=== PATIENT | female | born 1940 | race Caucasian/White ===

== ENCOUNTER 2021-05-21 07:31 | Emergency (ER) | payer MEDICARE, SELFPAY ==
--- NOTE | ~2021-05-21 | XR_ITS ---
EXAMINATION: XR CHEST CLINICAL INFORMATION: Shortness of breath COMPARISON: None TECHNIQUE: 2 views of the chest were obtained. FINDINGS: The cardiac silhouette does not appear enlarged. Hilar and mediastinal contours are unremarkable. Is increased density at the right lung apex. This may represent overlapping bone and soft tissue structures, the right first rib and clavicle. Chest CTA has been ordered and findings could be better delineated by CT. There are increased linear markings at the lung bases suggestive of atelectasis. The lungs are otherwise clear. There is no pleural effusion or pneumothorax. There are degenerative changes of the spine. XR/XR chest 2V IMPRESSION: 1.5 cm increased density at the right lung apex, question related to overlapping bone and soft tissue structures. Increased linear markings at the lung bases probably representing atelectasis.
--- NOTE | ~2021-05-21 | CT_ITS ---
EXAMINATION: CT ANGIOGRAM OF THE CHEST WITH AND WITHOUT CONTRAST (CT PULMONARY ANGIOGRAM FOR PE) CLINICAL INFORMATION: Reason for Exam Shortness of breath, CP COMPARISON: Chest x-ray from earlier the same day TECHNIQUE: Prior to contrast administration, noncontrast localization images were obtained. Subsequently, multidetector volumetric imaging was performed from the thoracic inlet to below the diaphragms following the administration of 75 mL Omnipaque 350 intravenous contrast. No contrast reaction reported Sagittal, coronal, and MIP oblique sagittal reformatted images were obtained on the CT workstation, uploaded to PACS, and reviewed. This CT examination was performed using dose optimization techniques as appropriate, variously including the following: *Automated exposure control *Adjustment of mA and/or kV according to patient size (this includes techniques or standardized protocols for targeted exams where dose is matched to indication/reason for exam; i.e. extremities or head) *Use of iterative reconstruction technique Total exam dose-length product 366 mGy-cm FINDINGS: QUALITY OF STUDY/CONTRAST BOLUS: Satisfactory. PULMONARY ARTERIES: No central or segmental pulmonary emboli. THORACIC AORTA: No aneurysm or dissection. LUNG: There are innumerable bilateral pulmonary nodules. Clusters of nodules and largest individual pulmonary nodules are noted. There are several clustered right upper lobe nodules and adjacent pleural thickening. This may account for chest x-ray finding. Largest pulmonary nodule measures 6 mm axial image 13 series 7. There is focal area of mild bronchial wall thickening and some bronchial soft tissue opacification of the right lung apex for example axial image 10 series 7. There are small clustered predominantly noncalcified nodules in the anterior segment of both upper lobes. This has tree-in-bud appearance suggestive of airways disease for example axial image 26 series 7. There is a 4 mm calcified left upper lobe nodule must region as well axial image 27 series 7. There is a 10 mm calcified lingular nodule axial image 32 series 7. There are clustered calcified and noncalcified right lower lobe nodules. There is a mild focal bronchiectasis and bronchial wall thickening. Some of these calcified nodules may represent calcified broncholiths. Largest calcified nodule measures 6 mm and noncalcified nodule 7 mm axial image 303 series 9. There is a noncalcified peripheral 7 mm right lower lobe nodule axial image 39 series 7. There is an 8 mm noncalcified left lower lobe nodule axial image 39 series 7. There is atelectasis seen at the lung bases. No definite pneumonia is seen. PLEURA: No pleural effusion or pneumothorax. MEDIASTINUM: Normal heart size. No pericardial effusion. No hilar or mediastinal lymphadenopathy. No evidence of septal bowing or right heart strain. CHEST WALL/AXILLA: No axillary or internal mammary lymphadenopathy. OSSEOUS STRUCTURES: No acute or suspicious osseous abnormality. UPPER ABDOMEN: There is a large right renal cyst. There is question of a 1.5 cm low-attenuation lesion in the upper pole of the left kidney for example sagittal reconstructed image 36 and coronal reconstructed image 57. There is fatty infiltration or atrophic changes of the pancreas. No reflux of contrast into the hepatic veins to suggest elevated right heart pressures. CT/CT angio chest PE protocol IMPRESSION: No evidence of pulmonary embolism. Innumerable pulmonary nodules. Many pulmonary nodules have clustered appearance with associated bronchial wall thickening suggestive of tree-in-bud appearance or airways disease. There is atelectasis at the lung bases. There is no definite evidence of a pneumonia. Short-term follow-up chest CT scan in several months following treatment is recommended. Large right renal cyst. Question 1.5 cm indeterminate left renal lesion. Follow-up renal ultrasound recommended. VTE: negative
--- NOTE | 2021-05-21 07:35 | ECG_ITS ---
Test Reason : chest pain Blood Pressure : / mmHG Vent. Rate : 080 BPM Atrial Rate : 080 BPM P-R Int : 196 ms QRS Dur : 110 ms QT Int : 390 ms P-R-T Axes : 078 -40 038 degrees QTc Int : 449 ms Normal sinus rhythm Left axis deviation Incomplete right bundle branch block Moderate voltage criteria for LVH, may be normal variant ( R in aVL , [place] product ) Nonspecific ST and T wave abnormality Abnormal ECG No previous ECGs available Referred By: Mirta Cameron Electronically Signed By:PAULETTE ANGULO
[2021-05-21 07:38] VITALS: BP 116/65; BP 138/80; PULSE 87; PULSE 88; RESP 18; TEMP 36.7; O2SAT 96; O2SAT 98; BMI 29.5
--- NOTE | 2021-05-21 07:59 | ED.CHESTPAIN ---
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 Patient presents to the emergency department with complaints of chest pain described as chest heaviness/pressure over the right side of her chest that is made worse with deep respiration. The pain has been present for 2-3 weeks but felt worse today. In addition she has been experiencing a worsening cough, she is followed by pulmonology at [facility]. She trialed one week taper prednisone without significant improvement. Last week she was placed on doxycycline which she was to take for 2 weeks. Initially her mucus/sputum was green in color, however she is no longer having this, and sputum is clear. She is experiencing associated nausea, generalized weakness, and fatigue. Denies recent unintentional weight loss, fevers, chills, headche, vision changes, dizziness/lightheadedness, jaw pain, neck pain, vomiting, abdominal pain, diarrhea, constipation, dysuria, urinary frequency/urgency/hesitancy. Patient does have a history of a myocardial infarction in November 2020, reportedly detected through troponin. Patient with a history of congestive heart failure, she has been monitoring her weights without any changes recently or increase in pedal edema, she follows a fluid restriction no more than 60 oz daily. Patient reports that in December 2020 some lung nodules were found on chest x-ray and she was awaiting a chest CT in June, as she reports there is concern for lung cancer. Reports being ?light? cigarette smoker for 20 years with cessation over 40 years ago. Reports her hand clerical verifier had started her on hypertonic saline 7% twice daily after her DuoNebs but she feels that this has only made her breathing and chest heaviness worse. MD complaint: chest heaviness Pertinent past history: prior [place] and asthma Timing of current episode: constant Prior episodes: Yes Onset: during rest and during exertion Pain location: right chest Pain radiation: none Severity: moderate Pain scale (0-10): 5 Quality: heaviness Relieving factors: nothing Exacerbating factors: exertion and inspiration Context: recent illness Associated symptoms: nausea Treatment prior to arrival: aspirin (324 mg p.o.) Risk Factors Coronary artery disease risk factors: smoking history, hyperlipidemia and hypertension Thoracic aortic dissection risk factors: longstanding hypertension Related Data Allergies Allergy/AdvReac Type Severity Reaction Status Date / Time erythromycin base Allergy Mild CRAMPS/DIARRHEA Verified 05/21/21 08:50 [ERYTHROMYCIN BASE] TOPICAL GRITTY FILM rituximab [From RITUXAN] Allergy Unknown HIVES Verified 05/21/21 08:50 atropine [From ] Allergy Diarrhea Verified 05/21/21 08:50 hyoscyamine [From ] Allergy Diarrhea Verified 05/21/21 08:50 phenobarbital [From ] Allergy Diarrhea Verified 05/21/21 08:50 scopolamine [From ] Allergy Diarrhea Verified 05/21/21 08:50 brompheniramine AdvReac Unknown HYPER Verified 05/21/21 08:50 [From DIMETA DM COLD-COUGH (PE)] ciprofloxacin [CIPROFLOXACIN] AdvReac Unknown INTESTINAL Verified 05/21/21 08:50 CRAMPS, DIARRHEA codeine [CODEINE] AdvReac Unknown HEADACHES Verified 05/21/21 08:50 dextromethorphan AdvReac Unknown HYPER Verified 05/21/21 08:50 [From DIMETA DM COLD-COUGH (PE)] diphenhydramine AdvReac Unknown HYPER Verified 05/21/21 08:50 [From BENADRYL] mesalamine [From ASACOL] AdvReac Unknown HYPER Verified 05/21/21 08:50 phenylephrine AdvReac Unknown HYPER Verified 05/21/21 08:50 [From DIMETA DM COLD-COUGH (PE)] Review of Systems Review of Systems: Constitutional: No weight loss, fever, chills, weakness or fatigue. HEENT: No visual loss, blurred vision, double vision or yellow sclera. No hearing loss, sneezing, congestion, runny nose or sore throat. Skin: No rash or itching. Cardiovascular: + chest pressure, chest heaviness, reportedly baseline pedal edema. No palpitations. Respiratory: + shortness of breath, dyspnea on exertion, cough Gastrointestinal: + nausea. No anorexia, vomiting or diarrhea. No abdominal pain or blood in stool. Genitourinary: No burning micturition. No urinary frequency or incontinence. Neurologic: No headache, dizziness, syncope, unilateral weakness, ataxia, numbness or tingling in the extremities. Musculoskeletal: No muscle pain, back pain, joint pain or stiffness. Hematologic: No bleeding or bruising. Lymphatics: No enlarged lymph nodes. Psychiatric:No depression or anxiety. Endocrine: No reports of sweating. No polyuria or polydipsia. [facility] Past Medical History Attestation statement: The following information was validated with the patient. Source: old records reviewed Medical History Acute Crohn's disease Anxiety Arthritis CHF (congestive heart failure) Heart attack High cholesterol HTN (hypertension) Macular degeneration of both eyes LORRAINE (mycobacterium avium-intracellulare) Sleep apnea Social History Social History Alcohol intake: former Patient Tobacco Use Status: Former Tobacco user Use of substances other than those prescribed or required for medical reasons: No Advance Directives: No Advance Directives Information Provided: No Physical Exam Vital Signs: Vital Signs: Last Vital Signs Temp 98.1 F 05/21/21 07:38 Pulse 74 05/21/21 12:37 Resp 16 05/21/21 12:37 BP 134/65 05/21/21 12:37 Pulse Ox 96 05/21/21 07:38 BMI result Body Mass Index 29.5 Vital signs have been reviewed as normal and appeared to be correct. Blood pressure normal.? Heart rate normal.? Respiration rate normal. Temperature normal.? Oxygen saturation normal. Appearance: Alert.?Oriented to person, place and time. No acute distress.?Normal affect. No diaphoresis Eyes: Pupils equal, round and reactive to light.? ENT: Pharynx normal.?? Neck: Normal inspection.? Neck supple.?? CVS: Heart sounds decreased with S1/S2 present. No M/G/R. No JVD. Normal heart rate and rhythm.? Pulses normal.? No chest wall tenderness Respiratory: No respiratory distress.? Lung sounds clear to auscultation at apices with rlae to the bilateral lower lobes Abdomen: Soft and non-tender. Normoactive bowel sounds. No pulsatile mass.?? Skin: Skin warm and dry.? Normal skin color.? Normal skin turgor.?? Extremities: + Non-pitting bilateral lower extremity edema. No calf ttp? Neuro: Moves all extremities spontaneously. Sensation intact bilaterally. CN II-XII intact. No focal neuro deficits. Ambulates with normal steady gait. Course Course Course Narrative: Patient is a 80-year-old female being evaluated for chest pressure/heaviness and cough, that is chronic but seemed worse this morning. Will obtain CBC to evaluate for leukocytosis/ anemia, CMP to evaluate for abnormal electrolytes /abnormal renal function/ abnormal hepatic function, EKG and troponin to evaluate for ischemia/ACS. Chest x-ray and BNP to evaluate fluid overload status and for consolidation/ infiltrate/ mass/ pulmonary congestion. Will obtain D-dimer to exclude pulmonary embolism, if elevated will obtain CTA of chest. History and physical exam not consistent with AAA/aortic dissection, blood pressure and pulses are equal, pain is non-radiating to the back and no focal neuro deficit is. Not consistent with pneumothorax, cardiac tamponade, esophageal rupture. Patient received aspirin 324 mg p.o. pre-hospital. Patient to receive nitro paste 0.5 in for chest pain, in addition to ceftriaxone 1 g IV to cover concern for bacterial pneumonia. At this time she is hemodynamically stable, afebrile, not tachycardic or tachypneic therefore, she does not meet SIRS criteria. She does report that she has had extensive cardiac workup outpatient including echocardiogram, cardiac MRI, stress testing, holter monitor. Disposition will be pending results Reevaluation(s) Reevaluation #1: CBC without leukocytosis, mild anemia with hemoglobin 11.8 and hematocrit 35.5. CMP is overall unremarkable BUN is 42 has suspect that this is due to dehydration, will encourage oral fluids at this time that she is currently on a fluid restriction, and would avoid IV fluids at this time given history of CHF and presence of rales bilaterally. BNP is normal at 48, troponin is 9.9, will obtain repeat delta in 3 hours, EKG with normal sinus rhythm nonspecific ST and T-wave abnormalities but no acute concern for ischemia. Chest x-ray indicates a 1.5 cm density at the right lung apex and increased linear markings at the bases likely representing atelectasis. D-dimer is elevated at 703, therefore will obtain CTA of the chest to exclude pulmonary embolism. COVID-19 testing is negative. Time: 09:00 Reevaluation #2: CT of the chest reveals no evidence of pulmonary embolism, notable pulmonary nodules with clustered appearance and bronchial wall thickening, atelectasis at the lung bases. No definite evidence of pneumonia. Incidental finding of large right renal cyst and 1.5 cm indeterminate left renal lesion with recommendation to follow-up with renal ultrasound. Patient reports minimal change in her chest comfort with the application of nitropaste. Will trial Tylenol alternatively. Awaiting repeat delta troponin at this time if <50% unlikely to be ACS and will plan for discharge home. Time: 10:02 Reevaluation #3: Repeat troponin 12.4, <50% delta therefore unlikely to be ACS. Her symptoms are most consistent with atypical chest pain, likely costochondritis due to coughing, and shortness of breath consistent with her underlying lung disease. Patient is well-appearing, mentating appropriately, speaking in clear full sentences, nontoxic, afebrile, non tachypneic, no hypoxia. Reviewed all lab results and imaging findings with the patient advised that she contact her primary care provider to schedule follow-up appointment in 1-2 days, in addition to contacting her hand clerical verifier and engineering and development director to schedule follow-up visit as needed. Advised patient that she may continue taking doxycycline as prescribed by her hand clerical verifier for bronchiectasis, though there is no obvious pneumonia on imaging. Discussed reasons to return to the emergency department including new or worsening symptoms or concerns, fevers, chills, difficulty breathing, chest pain, dizziness/lightheadedness, passing out, confusion. Time: 12:20 [facility] - Chest Pain Medical Records Data Attestation: I reviewed the patient's medical records. Lab Data Attestation: I reviewed the patient's lab results. Result diagrams: 05/21/21 08:26 05/21/21 08:26 Labs: Lab Results 05/21/21 05/21/21 05/21/21 Range/Units 08:26 08:26 08:26 WBC 9.8 (4.8-10.8) X10*3/uL RBC 3.86 L (4.20-5.50) X10*6/uL Hgb 11.8 L (12.0-16.0) g/dl Hct 35.5 L (37.0-47.0) % MCV 92.0 (80.0-98.0) fL MCH 30.6 (27.0-33.0) pg MCHC 33.2 (31.0-35.0) g/dl RDW 13.9 (11.0-16.0) % Plt Count 222 (160-400) X10*3/uL MPV 8.8 L (9.4-12.3) fL Immature Gran % (Auto) 0.7 H (0.0-0.4) % Neut % (Auto) 64.2 (45-73) % Lymph % (Auto) 20.4 (20-40) % [place] % (Auto) 10.7 (2-11) % Eos % (Auto) 3.8 (0-4) % Baso % (Auto) 0.2 (0-2) % Lymph # (Auto) 2.0 (1.2-4.9) X10*3/uL [place] # (Auto) 1.1 (0.1-1.2) X10*3/uL Eos # (Auto) 0.4 (0.0-0.4) X10*3/uL Baso # (Auto) 0.0 (0.0-0.2) X10*3/uL Abs Immat Gran (auto) 0.07 H (0.00-0.03) X10*3/uL Absolute Neuts (auto) 6.3 (2.0-8.3) x10*3/uL Absolute Nucleated RBC 0.000 (0.0-0.012) X10*3/uL Nucleated RBC % (auto) 0.0 (0.0-0.2) /100WBC D-Dimer High Sensitivty 703 NG/ML Sodium 138 (135-145) mmol/L Potassium 3.6 (3.3-5.1) mmol/L Chloride 98 (96-108) mmol/L Carbon Dioxide 31 H (22-29) mmol/L Anion Gap 13 (12-20) BUN 42 H (9-16) mg/dL Creatinine 1.25 (0.5-1.4) mg/dL Estim Creat Clear Calc 44.5 Estimated GFR 41 Random Glucose 106 (60-115) mg/dL Calcium 9.4 (8.4-10.2) mg/dL Magnesium 1.9 (1.6-2.6) mg/dL Total Bilirubin 0.7 (0.0-1.0) mg/dL AST 22 (5-31) U/L ALT 22 (0-31) U/L Alkaline Phosphatase 102 (39-117) U/L Troponin I High Sens (<3.5-17.0) ng/L B-Natriuretic Peptide (<100) pg/mL Total Protein 5.4 L (6.5-8.0) g/dL Albumin 3.2 L (3.5-5.0) g/dL COVID-19 ([facility]) (Negative) COVID-19 Clin Com 05/21/21 05/21/21 05/21/21 Range/Units 08:26 08:27 11:51 WBC (4.8-10.8) X10*3/uL RBC (4.20-5.50) X10*6/uL Hgb (12.0-16.0) g/dl Hct (37.0-47.0) % MCV (80.0-98.0) fL MCH (27.0-33.0) pg MCHC (31.0-35.0) g/dl RDW (11.0-16.0) % Plt Count (160-400) X10*3/uL MPV (9.4-12.3) fL Immature Gran % (Auto) (0.0-0.4) % Neut % (Auto) (45-73) % Lymph % (Auto) (20-40) % [place] % (Auto) (2-11) % Eos % (Auto) (0-4) % Baso % (Auto) (0-2) % Lymph # (Auto) (1.2-4.9) X10*3/uL [place] # (Auto) (0.1-1.2) X10*3/uL Eos # (Auto) (0.0-0.4) X10*3/uL Baso # (Auto) (0.0-0.2) X10*3/uL Abs Immat Gran (auto) (0.00-0.03) X10*3/uL Absolute Neuts (auto) (2.0-8.3) x10*3/uL Absolute Nucleated RBC (0.0-0.012) X10*3/uL Nucleated RBC % (auto) (0.0-0.2) /100WBC D-Dimer High Sensitivty NG/ML Sodium (135-145) mmol/L Potassium (3.3-5.1) mmol/L Chloride (96-108) mmol/L Carbon Dioxide (22-29) mmol/L Anion Gap (12-20) BUN (9-16) mg/dL Creatinine (0.5-1.4) mg/dL Estim Creat Clear Calc Estimated GFR Random Glucose (60-115) mg/dL Calcium (8.4-10.2) mg/dL Magnesium (1.6-2.6) mg/dL Total Bilirubin (0.0-1.0) mg/dL AST (5-31) U/L ALT (0-31) U/L Alkaline Phosphatase (39-117) U/L Troponin I High Sens 9.9 12.4 (<3.5-17.0) ng/L B-Natriuretic Peptide 48 (<100) pg/mL Total Protein (6.5-8.0) g/dL Albumin (3.5-5.0) g/dL COVID-19 ([facility]) Negative (Negative) COVID-19 Clin Com See Note Imaging Data Chest x-ray: Radiologist's impression: FINDINGS: The cardiac silhouette does not appear enlarged. Hilar and mediastinal contours are unremarkable. Is increased density at the right lung apex. This may represent overlapping bone and soft tissue structures, the right first rib and clavicle. Chest CTA has been ordered and findings could be better delineated by CT. There are increased linear markings at the lung bases suggestive of atelectasis. The lungs are otherwise clear. There is no pleural effusion or pneumothorax. There are degenerative changes of the spine. XR/XR chest 2V IMPRESSION: 1.5 cm increased density at the right lung apex, question related to overlapping bone and soft tissue structures. Increased linear markings at the lung bases probably representing atelectasis. CT scan - chest: Radiologist's impression: IMPRESSION: No evidence of pulmonary embolism. Innumerable pulmonary nodules. Many pulmonary nodules have clustered appearance with associated bronchial wall thickening suggestive of tree-in-bud appearance or airways disease. There is atelectasis at the lung bases. There is no definite evidence of a pneumonia. Short-term follow-up chest CT scan in several months following treatment is recommended. Large right renal cyst. Question 1.5 cm indeterminate left renal lesion. Follow-up renal ultrasound recommended. ? VTE: negative ECG Data ECG #1: Attestation: I personally reviewed and interpreted this ECG as follows: ECG interpretation date: 05/21/21 ECG interpretation time: 07:45 Prior ECG tracings: not available for review Interpretation: Rate: 80 Rhythm:? Normal sinus rhythm [place]:? Left axis deviation Normal P waves.? Normal [place].?? Normal QRS complex.?? ST T wave :??Nonspecific ST and T-wave abnormality qTC: 449 prior studies:? Not available for review The study has been interpreted contemporaneously by me. Discharge Plan Discharge Clinical Impression: Atypical chest pain, Bronchiectasis, Costochondritis Patient Disposition: Home, Self-Care Instructions: Costochondritis (ED), Bronchiectasis (ED) Additional Instructions: A CT of your chest was obtained to look for a pulmonary embolism, a blood clot in your lungs, which you do not have. As you made us aware you to have pulmonary nodules, and should have a follow-up chest CT scan as ordered outpatient. You had an EKG performed and we checked your troponin, a cardiac marker, she at this time you are not having a heart attack. there was an incidental finding of a large cyst to the right kidney and a possible 1.5 cm lesion to the left kidney, please speak with your primary care provider as you should have a renal ultrasound performed outpatient. Please contact your primary care provider to schedule a follow-up appointment in 3 days. Additionally I would contact your hand clerical verifier and your engineering and development director to schedule follow-up appointments. If you develop any new or worsening symptoms or concerns please return back to the emergency department this includes but is not limited to dizziness/lightheadedness, vision changes, neck pain, chest pain, palpitations, shortness of breath, difficulty breathing, numbness or tingling of the extremities, weakness, confusion. Interventions: ED Discharge Assessment Last Done: 05/21/21 13:15
[2021-05-21 08:33] LABS: MANUAL DIFF FLAG NO
[2021-05-21 08:34] LABS: Basophils Percent Auto 0.2 % (0-2); Eosinophils Absolute Auto 0.4 X10*3/uL (0.0-0.4); Eosinophils Percent Auto 3.8 % (0-4); Hematocrit 35.5 % (37.0-47.0); Hemoglobin 11.8 g/dl (12.0-16.0); Imm Gran Abs Auto 0.07 X10*3/uL (0.00-0.03); Imm Gran Pct Auto 0.7 % (0.0-0.4); Lymphocytes Percent Auto 20.4 % (20-40); Mean Corpuscular HGB Conc 33.2 g/dl (31.0-35.0); Mean Corpuscular Hemoglobin 30.6 pg (27.0-33.0); Mean Platelet Volume 8.8 fL (9.4-12.3); Monocytes Absolute Auto 1.1 X10*3/uL (0.1-1.2); Monocytes Percent Auto 10.7 % (2-11); Neutrophils Absolute Auto 6.3 x10*3/uL (2.0-8.3); Neutrophils Percent Auto 64.2 % (45-73); Platelet Count 222 X10*3/uL (160-400); Red Blood Count 3.86 X10*6/uL (4.20-5.50); Red Cell Distribution Width 13.9 % (11.0-16.0); White Blood Count 9.8 X10*3/uL (4.8-10.8)
[2021-05-21 08:42] LABS: D Dimer High Sensitivity 703 NG/ML
[2021-05-21 08:48] VITALS: PULSE 79; RESP 11
[2021-05-21 08:49] LABS: COVID-19 Test Negative (Negative)
[2021-05-21] MEDS: Nitroglycerin 2 % Oint 1 GM Packet 0.5 INCH TRANSDERMA (08:49)
[2021-05-21] MEDS: cefTRIAXone sodium 1 GM in 0.9 % Sodium Chloride 50 ML IV (08:50)
[2021-05-21 08:53] LABS: B Type Natriuretic Peptide 48 pg/mL (<100); Troponin-I High Sensitivity 9.9 ng/L (<3.5-17.0)
[2021-05-21 08:55] LABS: Alanine Aminotransferase 22 U/L (0-31); Albumin Level 3.2 g/dL (3.5-5.0); Alkaline Phosphatase 102 U/L (39-117); Anion Gap 13 (12-20); Aspartate Amino Transferase 22 U/L (5-31); Bilirubin Total 0.7 mg/dL (0.0-1.0); Blood Urea Nitrogen 42 mg/dL (9-16); Calcium 9.4 mg/dL (8.4-10.2); Carbon Dioxide 31 mmol/L (22-29); Chloride 98 mmol/L (96-108); Creatinine Clr Calc Pharmacy 44.5; Estimated Glomerular Filt Rate 41; Glucose Random 106 mg/dL (60-115); Magnesium 1.9 mg/dL (1.6-2.6); Potassium 3.6 mmol/L (3.3-5.1); Sodium 138 mmol/L (135-145); Total Protein 5.4 g/dL (6.5-8.0)
[2021-05-21] MEDS: iohexoL 350 MG/ML 100 ML INFUS..BTL IV ×2 (09:31→09:37)
[2021-05-21] MEDS: Acetaminophen 325 MG TABLET 650 MG PO (10:43)
[2021-05-21 12:14] LABS: Troponin-I High Sensitivity 12.4 ng/L (<3.5-17.0)
[2021-05-21 12:37] VITALS: BP 134/65; PULSE 74; RESP 16
[2021-05-21] MEDS: LORazepam 0.5 MG TABLET PO (12:38)
== END 2021-05-21 13:30 | disposition home or self-care (01) ==
PROVIDERS: Nurse Practitioner Family; Emergency Provider Emergency Medicine; PCP Internal Medicine
DX: R07.89 Other chest pain (principal); J47.9 Bronchiectasis, uncomplicated; M94.0 Chondrocostal junction syndrome [Tietze]; R06.02 Shortness of breath; R05.9 Cough, unspecified; R60.0 Localized edema; J45.909 Unspecified asthma, uncomplicated; Z20.822 Contact with and (suspected) exposure to COVID-19; Z87.891 Personal history of nicotine dependence
CPT/HCPCS: 36415; 71046; 71275; 80053; 83735; 83880; 84484; 85025; 85379; 87635; 93005; 96365; 99284; 99285; J0696; Q9967

== ENCOUNTER → 2021-07-07 13:04 | Outpatient (BNVA) | payer MEDICARE, SELFPAY | PROVIDERS: PCP Internal Medicine; Visit Provider Internal Medicine Cardiovascular Disease | DX: I50.30 Unspecified diastolic (congestive) heart failure (principal); I25.10 Atherosclerotic heart disease of native coronary artery without angina pectoris; Z79.82 Long term (current) use of aspirin; Z79.899 Other long term (current) drug therapy | CPT/HCPCS: 99202 ==

== ENCOUNTER 2021-07-14 11:48 | Outpatient (REF) | payer MEDICARE, SELFPAY ==
[2021-07-14 13:39] LABS: B Type Natriuretic Peptide 39 pg/mL (<100)
[2021-07-14 13:40] LABS: Anion Gap 15 (12-20); Blood Urea Nitrogen 32 mg/dL (9-16); Calcium 9.1 mg/dL (8.4-10.2); Carbon Dioxide 28 mmol/L (22-29); Chloride 99 mmol/L (96-108); Estimated Glomerular Filt Rate 38; Glucose Random 107 mg/dL (60-115); Potassium 4.1 mmol/L (3.3-5.1); Sodium 138 mmol/L (135-145)
== END 2021-07-14 11:49 | disposition home or self-care (01) ==
LOC: HO.LAB 11:48
PROVIDERS: PCP Internal Medicine; Visit Provider Internal Medicine Cardiovascular Disease
DX: I50.30 Unspecified diastolic (congestive) heart failure (principal)
CPT/HCPCS: 36415; 80048; 83880

== ENCOUNTER → 2021-08-24 13:37 | Outpatient (REF) | payer MEDICARE, SELFPAY ==
--- NOTE | 2021-08-24 13:42 | CA_ITS ---
Transthoracic Echocardiogram Patient (Last, First, Middle): Magy Martel, Gender: Female Date of : 1940 Age: 81 Procedure Date: 08/24/2021 Procedure Type: Transthoracic Echocardiogram Location: OP Height: 175.26 cm Weight: 95.26 kg BSA: 2.11 m2 Heart Rate: bpm BP: 110 / 60 mmHg Mmd Unit Teacher: CP/TO Referring MD: Vidal Maya MD Rate Clerk: Vidal Maya MD Symptoms: I50.30 - Unspecified diastolic (congestive) heart failure Study Quality: Adequate ECG Rhythm: Sinus Conclusions: - 1. Normal LV systolic function with grade 1 diastolic dysfunction 2. Normal cardiac valvular Doppler 3. Normal RV systolic pressure 4. No gross pericardial effusion Findings Left Ventricle Normal left ventricular size, thickness, and systolic function. The visually estimated ejection fraction is between 55-60%. Spectral Doppler is indicative of an impaired relaxation filling pattern. E/E prime ratio is <8, consistent with normal filling pressures. Evidence suggests grade I (mild) diastolic dysfunction. Right Ventricle Normal right ventricular cavity size and systolic function. Atria The left atrium is normal in size. There is no evidence of interatrial shunt. The right atrium is normal in size. Aortic Valve The aortic valve structure and function is likely normal. There is no aortic valve stenosis. There is no aortic valve regurgitation. Mitral Valve Normal mitral valve structure and function. There is trace mitral valve regurgitation. There is no mitral valve stenosis. Pulmonic Valve The pulmonic valve is likely normal. Tricuspid Valve Normal tricuspid valve structure. There is trace tricuspid valve regurgitation. The right ventricular systolic pressure is normal. The right ventricular systolic pressure is 16 mmHg. Normal right atrial pressure. There is no evidence of pulmonary hypertension. Great Vessels All visible segments of the aorta are normal in size. The pulmonary artery was not well visualized. Venous The inferior vena cava is normal in size and collapses greater than 50% with inspiration. Pericardium/Pleural There is no evidence of pericardial effusion. Prior Study Comparison No prior study available for comparison. Measurements 2D Linear Measurements IVSd: 1.10 0.6-0.9/0.6-1.0 cm LVIDd: 4.12 3.9-5.3/4.2-5.9 cm LVIDd Index: 1.95 2.4-3.2/2.2-3.1 cm/m2 LVIDs: 3.03 2.0-3.6 cm LVPWd: 1.02 0.7-1.1 cm LA Diam: 3.10 2.7-3.8/3.0-4.0 cm LAIDs Index: 1.47 1.5-2.3 cm/m2 LV Mass: 179.96 67-162/88-224 g LV Mass Index: 85.29 43-95/49-115 g/m2 LVOT Diam: 2.30 3.0+(-)1.3 cm 2D Systolic Function EF 4C: 54.30 >55% EF 2C: 56.30 >55% EF BiP: 55.70 >55% Mitral Valve MV Pk E: 0.64 MV PK A: 0.80 MV Decel Time: 293.00 E/A: 0.80 E'Lateral: 10.00 E'Medial: 6.53 E/E' Med: 9.80 E/E' Lat: 6.40 PHT: 86.00 MVA PHT: 2.56 Decel [place]: 2.18 Aortic Valve AoV Pk Tejas: 1.42 AoV Mn Tejas: 1.02 AoV VTI: 0.33 AoV Pk Grad: 8.00 Aov Mn Grad: 5.00 AV Cont.VTI: 2.58 LVOT LVOT Pk Tejas: 0.78 LVOT Mn Tejas: 0.56 LVOT VTI: 0.21 LVOT Pk Grad: 2.00 LVOT Mn Grad: 1.00 LVOT Diam: 2.30 LVOT Area: 4.15 Diastolic Function MV Pk E: 0.64 MV Pk A: 0.80 E/A: 0.80 E'Medial: 6.53 E/E' Med: 9.80 E' Laterial: 10.00 E/E' Lat: 6.40 Right Ventricle TAPSE (mm): 19.30 TVS' Tejas: 12.10 Tricuspid Valve TR Pk Tejas: 1.78 TR Pk Grad: 13.00 RA Press: 3.00 RVSP: 16.00 Great Vessels Aorta Sinus of Valsalva: 3.44 2.0-3.[address] [place]: 2.84 1.7-3.4 cm Ao Asc: 2.90 2.1-3.4 cm Ao Arch: 2.50 Updated in Other Vendor System with Status of Final Vidal Maya MD electronically signed on 08/25/2021 1:31:19 PM with status of Final
== END ==
LOC: HO.CARD 13:37
PROVIDERS: PCP Internal Medicine; Visit Provider Internal Medicine Cardiovascular Disease
DX: I50.30 Unspecified diastolic (congestive) heart failure (principal)
CPT/HCPCS: 93306

== ENCOUNTER → 2021-08-26 13:31 | Outpatient (BNVA) | payer MEDICARE, SELFPAY | PROVIDERS: PCP Internal Medicine; Visit Provider Internal Medicine Cardiovascular Disease | DX: I50.30 Unspecified diastolic (congestive) heart failure (principal); I25.10 Atherosclerotic heart disease of native coronary artery without angina pectoris; Z79.899 Other long term (current) drug therapy | CPT/HCPCS: 99212 ==

== ENCOUNTER 2021-09-09 11:27 | Outpatient (REF) | payer MEDICARE, SELFPAY ==
[2021-09-09 12:43] LABS: Anion Gap 10 (12-20); Blood Urea Nitrogen 21 mg/dL (9-16); Calcium 9.1 mg/dL (8.4-10.2); Carbon Dioxide 28 mmol/L (22-29); Chloride 101 mmol/L (96-108); Estimated Glomerular Filt Rate 38; Glucose Random 85 mg/dL (60-115); Potassium 4.8 mmol/L (3.3-5.1); Sodium 134 mmol/L (135-145)
[2021-09-09 12:48] LABS: B Type Natriuretic Peptide 41 pg/mL (<100)
== END 2021-09-09 11:28 | disposition home or self-care (01) ==
LOC: HO.LAB 11:27
PROVIDERS: Absent Provider Internal Medicine Pulmonary Disease; PCP Internal Medicine; Visit Provider Internal Medicine Cardiovascular Disease
DX: I50.30 Unspecified diastolic (congestive) heart failure (principal)
CPT/HCPCS: 36415; 80048; 83880

== ENCOUNTER 2021-09-15 16:36 | Emergency (ER) | payer MEDICARE, SELFPAY ==
--- NOTE | ~2021-09-15 | US_ITS ---
EXAMINATION: US VENOUS ULTRASOUND WITH DOPPLER LOWER EXTREMITY, RIGHT CLINICAL INFORMATION: Right lower extremity swelling, redness and pain. COMPARISON: None TECHNIQUE: Ultrasound of the deep veins is performed from the hip to the calf with compression sonography and color and pulse Doppler assessment. Spectral analysis with color-flow imaging is performed. FINDINGS: There is normal venous compression and respiratory variation and augmented flow. The visualized common femoral vein, superficial femoral vein, profunda femoral vein, popliteal vein, and the trifurcation region shows no evidence of deep venous thrombosis. There is no right popliteal cyst. Moderate subcutaneous edema is seen in the right calf. US/US venous duplex LE RT IMPRESSION: No evidence for deep venous thrombosis in the visualized veins of the right lower extremity. Moderate right calf subcutaneous edema.
[2021-09-15 16:39] VITALS: BP 143/72; PULSE 89; RESP 18; TEMP 36.7; O2SAT 98; BMI 31.0
--- NOTE | 2021-09-15 16:54 | ED_ITS ---
HPI - General Adult General Chief complaint: Skin/Abscess/Foreign Body Stated complaint: Right lower leg swollen ,reddened ?clot Time Seen by Provider: 09/15/21 16:45 Source: patient Mode of arrival: ambulatory History of Present Illness HPI narrative: 81-year-old female with a past medical history of Crohn's disease, anxiety arthritis, HLD, HTN, LORRAINE, sleep apnea, CHF on torsemide, presenting to the ED complaining RLE swelling, erythema, and pain x3 days. Admits initially had superficial cut to leg from a nail, then woke up with erythema and swelling which has been persistent. Reports chronic SOB unchanged. Was seen at [facility] and sent to ED for further evaluation. Denies fever, chills, numbness/tingling, history of clots, recent travel. Does not take anticoagulation. Onset (ago): day(s) Related Data Home Medications Medication Instructions Recorded Confirmed aspirin 81 mg tablet,delayed 81 mg PO DAILY 07/07/21 07/07/21 release (Adult Low Dose Aspirin) atorvastatin 20 mg tablet 20 mg PO DAILY 07/07/21 07/07/21 budesonide-formoterol HFA 160 inhalation 07/07/21 07/07/21 mcg-4.5 mcg/actuation aerosol inhaler (Symbicort) carvedilol 6.25 mg tablet 6.25 mg PO BID 07/07/21 07/07/21 celecoxib 200 mg capsule 200 mg PO DAILY 07/07/21 07/07/21 fluticasone propionate 220 2 puff inhalation BID 07/07/21 07/07/21 mcg/actuation HFA aerosol inhaler (Flovent HFA) lorazepam 0.5 mg tablet 0.5 mg PO TID PRN 07/07/21 07/07/21 losartan 25 mg tablet 25 mg PO DAILY 07/07/21 07/07/21 potassium chloride 10 mEq 10 meq PO DAILY 07/07/21 07/07/21 tablet,extended release tiotropium bromide 2.5 2 puff PO DAILY 07/07/21 07/07/21 mcg/actuation mist for inhalation (Spiriva Respimat) torsemide 20 mg tablet 40 mg PO QAM 07/07/21 07/07/21 vitamins A,C,U-xwpz-mmvror 14,320 1 cap PO BID 07/07/21 07/07/21 unit-226 mg-200 unit capsule (PreserVision AREDS) doxycycline hyclate 100 mg tablet 100 mg PO BID 08/26/21 Previous Rx's Medication Instructions Recorded spironolactone 25 mg tablet 12.5 mg PO DAILY #20 tabs 07/07/21 (Aldactone) cephalexin 500 mg capsule 500 mg PO QID 7 days #28 caps 09/15/21 doxycycline hyclate 100 mg tablet 100 mg PO BID 7 days #14 tabs 09/15/21 Allergies Allergy/AdvReac Type Severity Reaction Status Date / Time erythromycin base Allergy Mild CRAMPS/DIARRHEA Verified 05/21/21 08:50 [ERYTHROMYCIN BASE] TOPICAL GRITTY FILM rituximab [From RITUXAN] Allergy Unknown HIVES Verified 05/21/21 08:50 atropine [From ] Allergy Diarrhea Verified 05/21/21 08:50 hyoscyamine [From ] Allergy Diarrhea Verified 05/21/21 08:50 phenobarbital [From ] Allergy Diarrhea Verified 05/21/21 08:50 scopolamine [From ] Allergy Diarrhea Verified 05/21/21 08:50 brompheniramine AdvReac Unknown HYPER Verified 05/21/21 08:50 [From DIMETAPP DM COLD-COUGH (PE)] ciprofloxacin [CIPROFLOXACIN] AdvReac Unknown INTESTINAL Verified 05/21/21 08:50 CRAMPS, DIARRHEA codeine [CODEINE] AdvReac Unknown HEADACHES Verified 05/21/21 08:50 dextromethorphan AdvReac Unknown HYPER Verified 05/21/21 08:50 [From DIMETAPP DM COLD-COUGH (PE)] diphenhydramine AdvReac Unknown HYPER Verified 05/21/21 08:50 [From BENADRYL] mesalamine [From ASACOL] AdvReac Unknown HYPER Verified 05/21/21 08:50 phenylephrine AdvReac Unknown HYPER Verified 05/21/21 08:50 [From DIMETAPP DM COLD-COUGH (PE)] Review of Systems Review of Systems: Constitutional: No Fever, No Chills, No Fatigue, No Malaise ENT/Mouth: No Hearing loss, No Ear Pain, No Nasal Congestion, No sore throat, No Rhinorrhea, No Swallowing Difficulty Eyes: No Eye Pain, No Swelling, No Redness Cardiovascular: No Chest Pain, Chronic SOB, No Dyspnea on Exertion, No Orthopnea, + Edema, No Palpitations Respiratory: No Cough, No Sputum, No Wheezing, No Smoke Exposure, No Dyspnea Gastrointestinal: No Nausea, No Vomiting, No Diarrhea, No Constipation, No Ab dominal pain Genitourinary: No Dysuria, No Urinary Frequency, No Hematuria, No Urinary Incontinence/retentionNo Flank Pain Musculoskeletal: No joint pain, No Myalgias, No Joint Swelling Skin: + Skin Lesions, No rash Neuro: No Weakness, No Numbness, No Paresthesias, No Headache Yes all other systems are reviewed and are negative [facility] Past Medical History Attestation statement: The following information was validated with the patient. Medical History Acute Crohn's disease Anxiety Arthritis Heart attack High cholesterol HTN (hypertension) Macular degeneration of both eyes LORRAINE (mycobacterium avium-intracellulare) Sleep apnea Social History Social History Alcohol intake: former Patient Tobacco Use Status: Former Tobacco user Advance Directives: No Advance Directives Information Provided: No Physical Exam ED Vital Signs: Vital Signs - 24 hr 09/15/21 16:39 Temperature 98.0 F Pulse Rate 89 Respiratory Rate 18 Blood Pressure 143/72 H Pulse Oximetry 98 Oxygen Delivery Method Room Air BMI result Body Mass Index 31.0 Const General: cooperative, healthy appearing and no acute distress Orientation/consciousness: patient oriented x3 Limitations: no limitations HENMT Head: Yes normal to inspection and Yes atraumatic Ears: hearing grossly normal bilaterally General nose exam: Normal external nose present Face and sinus: Yes normal facial exam Eyes General: appearance normal, both eyes and all related structures EOM: EOMs intact bilaterally Neck Neck: Yes normal visual inspection and Yes no meningeal signs Resp Effort & Inspection: normal respiratory effort and no respiratory distress Auscultation: clear to auscultation bilaterally, no rales, no rhonchi and no wheezes Cardio Rate: regular rate Heart sounds: S1 normal heart sound present and S2 normal heart sound present Peripheral pulses: dorsalis pedis present GI Inspection: Yes normal to inspection Skin Wounds: no wounds Neuro General: patient oriented x3, tone normal and no meningeal signs Gait exam (Neuro): Normal gait present Extrem Other: Right lower extremity with noted swelling/edema and erythema. No warmth. Mild calf tenderness. Neurovascular intact distally. Small superficial healing abrasion noted to lateral aspect of tib/fib Course Course Course Narrative: -1855--no leukocytosis. H&H at patient's baseline. BUN chronically elevated. BNP chronically elevated but still WNL US venous duplex LE RT IMPRESSION: No evidence for deep venous thrombosis in the visualized veins of the right lower extremity. ? Moderate right calf subcutaneous edema. >> treat patient for cellulitic leg. Results discussed including worrisome signs and symptoms and strict return precautions and need close follow-up with PCP Medical Decision Making MDM Narrative Medical decision making narrative: 81-year-old female with a past medical history of Crohn's disease, anxiety arthritis, HLD, HTN, LORRAINE, sleep apnea, CHF on torsemide, presenting to the ED complaining RLE swelling, erythema, and pain x3 days. On exam vital signs stable, NAD, nontoxic appearing, physical exam as above with RLE edema/erythema and calf tenderness. Concern for cellulitis vs DVT. Low concern for necrotizing fasciitis or CHF Plan: Labs, venous duplex ultrasound Medical Records Medical records reviewed: Yes I reviewed the patient's medical records. Lab Data Lab results reviewed: Yes I reviewed the patient's lab results. Result diagrams: 09/15/21 18:03 09/15/21 18:03 Labs: Lab Results 09/15/21 09/15/21 09/15/21 Range/Units 18:03 18:03 18:03 WBC 8.5 (4.8-10.8) X10*3/uL RBC 3.83 L (4.20-5.50) X10*6/uL Hgb 11.6 L (12.0-16.0) g/dl Hct 35.5 L (37.0-47.0) % MCV 92.7 (80.0-98.0) fL MCH 30.3 (27.0-33.0) pg MCHC 32.7 (31.0-35.0) g/dl RDW 14.2 (11.0-16.0) % Plt Count 244 (160-400) X10*3/uL MPV 8.5 L (9.4-12.3) fL Immature Gran % (Auto) 0.4 (0.0-0.4) % Neut % (Auto) 61.5 (45-73) % Lymph % (Auto) 23.8 (20-40) % [place] % (Auto) 10.1 (2-11) % Eos % (Auto) 3.8 (0-4) % Baso % (Auto) 0.4 (0-2) % Lymph # (Auto) 2.0 (1.2-4.9) X10*3/uL [place] # (Auto) 0.9 (0.1-1.2) X10*3/uL Eos # (Auto) 0.3 (0.0-0.4) X10*3/uL Baso # (Auto) 0.0 (0.0-0.2) X10*3/uL Abs Immat Gran (auto) 0.03 (0.00-0.03) X10*3/uL Absolute Neuts (auto) 5.2 (2.0-8.3) x10*3/uL Absolute Nucleated RBC 0.000 (0.0-0.012) X10*3/uL Nucleated RBC % (auto) 0.0 (0.0-0.2) /100WBC PT 11.0 (9.9-13.0) SEC INR 1.0 (0.9-1.1) Sodium 138 (135-145) mmol/L Potassium 4.6 (3.3-5.1) mmol/L Chloride 103 (96-108) mmol/L Carbon Dioxide 25 (22-29) mmol/L Anion Gap 15 (12-20) BUN 24 H (9-16) mg/dL Creatinine 1.09 (0.5-1.4) mg/dL Estim Creat Clear Calc 51.3 Estimated GFR 48 Random Glucose 109 (60-115) mg/dL Calcium 9.6 (8.4-10.2) mg/dL Total Bilirubin 0.5 (0.0-1.0) mg/dL Direct Bilirubin 0.2 (0.0-0.5) mg/dL AST 31 D (5-31) U/L ALT 22 (0-31) U/L Alkaline Phosphatase 100 (39-117) U/L B-Natriuretic Peptide (<100) pg/mL Total Protein 6.4 L (6.5-8.0) g/dL Albumin 3.7 (3.5-5.0) g/dL 09/15/21 Range/Units 18:03 WBC (4.8-10.8) X10*3/uL RBC (4.20-5.50) X10*6/uL Hgb (12.0-16.0) g/dl Hct (37.0-47.0) % MCV (80.0-98.0) fL MCH (27.0-33.0) pg MCHC (31.0-35.0) g/dl RDW (11.0-16.0) % Plt Count (160-400) X10*3/uL MPV (9.4-12.3) fL Immature Gran % (Auto) (0.0-0.4) % Neut % (Auto) (45-73) % Lymph % (Auto) (20-40) % [place] % (Auto) (2-11) % Eos % (Auto) (0-4) % Baso % (Auto) (0-2) % Lymph # (Auto) (1.2-4.9) X10*3/uL [place] # (Auto) (0.1-1.2) X10*3/uL Eos # (Auto) (0.0-0.4) X10*3/uL Baso # (Auto) (0.0-0.2) X10*3/uL Abs Immat Gran (auto) (0.00-0.03) X10*3/uL Absolute Neuts (auto) (2.0-8.3) x10*3/uL Absolute Nucleated RBC (0.0-0.012) X10*3/uL Nucleated RBC % (auto) (0.0-0.2) /100WBC PT (9.9-13.0) SEC INR (0.9-1.1) Sodium (135-145) mmol/L Potassium (3.3-5.1) mmol/L Chloride (96-108) mmol/L Carbon Dioxide (22-29) mmol/L Anion Gap (12-20) BUN (9-16) mg/dL Creatinine (0.5-1.4) mg/dL Estim Creat Clear Calc Estimated GFR Random Glucose (60-115) mg/dL Calcium (8.4-10.2) mg/dL Total Bilirubin (0.0-1.0) mg/dL Direct Bilirubin (0.0-0.5) mg/dL AST (5-31) U/L ALT (0-31) U/L Alkaline Phosphatase (39-117) U/L B-Natriuretic Peptide 73 (<100) pg/mL Total Protein (6.5-8.0) g/dL Albumin (3.5-5.0) g/dL Discharge Plan Discharge Clinical Impression: Cellulitis Patient Disposition: Home, Self-Care Instructions: Cellulitis (ED) Additional Instructions: Your ultrasound does not show blood clot, does show swelling. Her blood work was otherwise reassuring. You have an infection in her leg. Keflex and doxycycline or antibiotics please take as prescribed You should wear compression stockings at home. Elevate your legs. If he develops shortness of breath, chest pain, worsening swelling/pain or redness please return to the emergency department Prescriptions: New cephalexin 500 mg capsule 500 mg PO QID 7 Days Qty: 28 0RF doxycycline hyclate 100 mg tablet 100 mg PO BID 7 Days Qty: 14 0RF No Action doxycycline hyclate 100 mg tablet 100 mg PO BID celecoxib 200 mg capsule 200 mg PO DAILY carvedilol 6.25 mg tablet 6.25 mg PO BID Spiriva Respimat 2.5 mcg/actuation mist 2 puff PO DAILY Flovent HFA 220 mcg/actuation HFA aerosol inhaler 2 puff inhalation BID potassium chloride 10 mEq tablet extended release 10 meq PO DAILY torsemide 20 mg tablet 40 mg PO QAM atorvastatin 20 mg tablet 20 mg PO DAILY budesonide-formoterol [Symbicort] 160-4.5 mcg/actuation HFA aerosol inhaler inhalation losartan 25 mg tablet 25 mg PO DAILY aspirin [Adult Low Dose Aspirin] 81 mg tablet,delayed release (DR/EC) 81 mg PO DAILY PreserVision AREDS [id number] anaf-us-qnpd capsule 1 cap PO BID lorazepam 0.5 mg tablet 0.5 mg PO TID PRN spironolactone [Aldactone] 25 mg tablet 12.5 mg PO DAILY Qty: 20 3RF Referrals: Guicho Oshea MD [Primary Care Provider] - 5 days
[2021-09-15 18:08] LABS: MANUAL DIFF FLAG NO
[2021-09-15 18:10] LABS: Basophils Percent Auto 0.4 % (0-2); Eosinophils Absolute Auto 0.3 X10*3/uL (0.0-0.4); Eosinophils Percent Auto 3.8 % (0-4); Hematocrit 35.5 % (37.0-47.0); Hemoglobin 11.6 g/dl (12.0-16.0); Imm Gran Abs Auto 0.03 X10*3/uL (0.00-0.03); Imm Gran Pct Auto 0.4 % (0.0-0.4); Lymphocytes Percent Auto 23.8 % (20-40); Mean Corpuscular HGB Conc 32.7 g/dl (31.0-35.0); Mean Corpuscular Hemoglobin 30.3 pg (27.0-33.0); Mean Corpuscular Volume 92.7 fL (80.0-98.0); Mean Platelet Volume 8.5 fL (9.4-12.3); Monocytes Absolute Auto 0.9 X10*3/uL (0.1-1.2); Monocytes Percent Auto 10.1 % (2-11); Neutrophils Absolute Auto 5.2 x10*3/uL (2.0-8.3); Neutrophils Percent Auto 61.5 % (45-73); Platelet Count 244 X10*3/uL (160-400); Red Blood Count 3.83 X10*6/uL (4.20-5.50); Red Cell Distribution Width 14.2 % (11.0-16.0); White Blood Count 8.5 X10*3/uL (4.8-10.8)
[2021-09-15 18:30] LABS: B Type Natriuretic Peptide 73 pg/mL (<100)
[2021-09-15 18:31] LABS: Alanine Aminotransferase 22 U/L (0-31); Albumin Level 3.7 g/dL (3.5-5.0); Alkaline Phosphatase 100 U/L (39-117); Anion Gap 15 (12-20); Aspartate Amino Transferase 31 U/L (5-31); Bilirubin Total 0.5 mg/dL (0.0-1.0); Blood Urea Nitrogen 24 mg/dL (9-16); Calcium 9.6 mg/dL (8.4-10.2); Carbon Dioxide 25 mmol/L (22-29); Chloride 103 mmol/L (96-108); Creatinine Clr Calc Pharmacy 51.3; Estimated Glomerular Filt Rate 48; Glucose Random 109 mg/dL (60-115); Potassium 4.6 mmol/L (3.3-5.1); Sodium 138 mmol/L (135-145); Total Protein 6.4 g/dL (6.5-8.0)
[2021-09-15 18:44] LABS: Bilirubin Direct 0.2 mg/dL (0.0-0.5)
== END 2021-09-15 19:20 | disposition home or self-care (01) ==
PROVIDERS: Physician Assistant; Emergency Provider Emergency Medicine; PCP Internal Medicine
DX: L03.115 Cellulitis of right lower limb (principal); R60.0 Localized edema; R06.02 Shortness of breath; I10 Essential (primary) hypertension; Z79.899 Other long term (current) drug therapy; Z79.82 Long term (current) use of aspirin; Z87.891 Personal history of nicotine dependence
CPT/HCPCS: 36415; 80048; 80076; 83880; 85025; 85610; 93971; 99284

== ENCOUNTER → 2021-11-25 12:47 | Outpatient (BNVA) | payer MEDICARE, SELFPAY | PROVIDERS: PCP Internal Medicine; Visit Provider Internal Medicine Cardiovascular Disease | DX: I50.30 Unspecified diastolic (congestive) heart failure (principal); I25.10 Atherosclerotic heart disease of native coronary artery without angina pectoris; Z79.82 Long term (current) use of aspirin; Z79.899 Other long term (current) drug therapy | CPT/HCPCS: 99212 ==

== ENCOUNTER → 2022-02-16 08:59 | Outpatient (BNVA) | payer MEDICARE, SELFPAY | PROVIDERS: PCP Internal Medicine; Visit Provider Internal Medicine Cardiovascular Disease | DX: I50.30 Unspecified diastolic (congestive) heart failure (principal); I25.10 Atherosclerotic heart disease of native coronary artery without angina pectoris; Z95.0 Presence of cardiac pacemaker | CPT/HCPCS: 99212 ==

== ENCOUNTER → 2022-03-17 14:39 | Outpatient (BNVA) | payer MEDICARE, SELFPAY | PROVIDERS: PCP Internal Medicine; Visit Provider Internal Medicine Cardiovascular Disease | DX: Z45.018 Encounter for adjustment and management of other part of cardiac pacemaker (principal); I50.30 Unspecified diastolic (congestive) heart failure | CPT/HCPCS: 93280; 99212 ==

== ENCOUNTER → 2022-05-17 12:22 | Outpatient (BNVA) | payer MEDICARE, SELFPAY | PROVIDERS: PCP Internal Medicine; Visit Provider Internal Medicine Cardiovascular Disease | DX: Z45.018 Encounter for adjustment and management of other part of cardiac pacemaker (principal); I50.30 Unspecified diastolic (congestive) heart failure | CPT/HCPCS: 93280; 99212 ==

== ENCOUNTER → 2022-08-18 12:53 | Outpatient (REF) | payer MEDICARE, SELFPAY ==
--- NOTE | 2022-08-18 12:55 | CA_ITS ---
Transthoracic Echocardiogram Patient (Last, First, Middle): Magy Martel, Gender: Female Date of : 1940 Age: 82 Procedure Date: 08/18/2022 Procedure Type: Transthoracic Echocardiogram Location: OP Height: 175.26 cm Weight: 83.92 kg BSA: 2.00 m2 Heart Rate: 77 bpm BP: 116 / 64 mmHg Electrical And Instrument Mechanic: [id number] Referring MD: Vidal Maya MD Symptoms: I42.9 - Cardiomyopathy, unspecified Study Quality: Adequate ECG Rhythm: Sinus Conclusions: - The left ventricular systolic function is mildly decreased. The calculated ejection fraction is 46% by biplane method. Findings Left Ventricle Normal left ventricular cavity size. There is normal left ventricular wall thickness. The left ventricular systolic function is mildly decreased. The calculated ejection fraction is 46% by biplane method. There is paradoxical septal motion consistent with a right ventricular pacemaker. Evidence suggests grade I (mild) diastolic dysfunction. LV peak GLS -13.1%. Right Ventricle Normal right ventricular cavity size. There is low normal right ventricular systolic function. TAPSE likely not accurate. Atria Both atria are normal in size. Aortic Valve There is no aortic valve stenosis. Prior Study Comparison Changes noted compared to prior study dated: 08/24/2021. LVEF slightly reduced. Measurements 2D Linear Measurements IVSd: 1.00 0.6-0.9/0.6-1.0 cm LVIDd: 3.48 3.9-5.3/4.2-5.9 cm LVIDd Index: 1.74 2.4-3.2/2.2-3.1 cm/m2 LVIDs: 2.76 2.0-3.6 cm LVPWd: 0.93 0.7-1.1 cm LA Diam: 2.40 2.7-3.8/3.0-4.0 cm LAIDs Index: 1.20 1.5-2.3 cm/m2 LV Mass: 120.39 67-162/88-224 g LV Mass Index: 60.19 43-95/49-115 g/m2 LVOT Diam: 2.10 3.0+(-)1.3 cm 2D Systolic Function EF 4C: 50.10 >55% EF 2C: 37.30 >55% EF BiP: 46.00 >55% Mitral Valve MV Pk E: 0.57 MV PK A: 0.96 MV Decel Time: 216.00 E/A: 0.60 E'Lateral: 8.38 E'Medial: 4.03 E/E' Med: 14.20 E/E' Lat: 6.80 PHT: 63.00 MVA PHT: 3.49 Decel Fisher: 2.65 Aortic Valve AoV Pk Tejas: 1.32 AoV Mn Tejas: 0.91 AoV VTI: 0.24 AoV Pk Grad: 7.00 Aov Mn Grad: 4.00 AV Cont.VTI: 2.13 LVOT LVOT Pk Tejas: 0.76 LVOT Mn Tejas: 0.54 LVOT VTI: 0.15 LVOT Pk Grad: 2.00 LVOT Mn Grad: 1.00 LVOT Diam: 2.10 LVOT Area: 3.46 Diastolic Function MV Pk E: 0.57 MV Pk A: 0.96 E/A: 0.60 E'Medial: 4.03 E/E' Med: 14.20 E' Laterial: 8.38 E/E' Lat: 6.80 Right Ventricle TVS' Tejas: 10.00 Tricuspid Valve RA Press: 3.00 Great Vessels Aorta Sinus of Valsalva: 3.10 2.0-3.5 cm Ao Asc: 3.10 2.1-3.4 cm Pulmonary Valve PV Pk Tejas: 0.94 Peak PV Grad: 4.00 Updated in Other Vendor System with Status of Final Miky Whatley MD electronically signed on 08/20/2022 12:31:46 PM with status of Final
== END ==
LOC: HO.CARD 12:53
PROVIDERS: PCP Internal Medicine; Visit Provider Internal Medicine Cardiovascular Disease
DX: I44.2 Atrioventricular block, complete (principal); I50.30 Unspecified diastolic (congestive) heart failure; I42.9 Cardiomyopathy, unspecified
CPT/HCPCS: 93306; 93356

== ENCOUNTER → 2022-09-22 10:48 | Outpatient (BNVA) | payer MEDICARE, SELFPAY | PROVIDERS: PCP Internal Medicine; Visit Provider Internal Medicine Cardiovascular Disease | DX: Z45.018 Encounter for adjustment and management of other part of cardiac pacemaker (principal); I50.30 Unspecified diastolic (congestive) heart failure; I25.10 Atherosclerotic heart disease of native coronary artery without angina pectoris | CPT/HCPCS: 93280; 99212 ==

== ENCOUNTER 2022-10-24 14:40 | Outpatient (AMB) | payer MEDICARE, SELFPAY ==
[2022-10-24 14:42] VITALS: BP 120/70; PULSE 93; BMI 26.4
--- NOTE | 2022-10-24 14:42 | A.OFFVIS_ITS ---
Intake Vital Signs 10/24/22 14:42 Height 5 ft 9 in Weight 178 lb 9.191 oz BMI 26.4 BP 120/70 Blood Pressure Location Lt brachial Position Sitting Pulse 93 Intake Visit Reasons: [facility] follow up Intake Note: [facility] for sob and chest pressure c/o fatigue and sob Adult Health Clinical Nurse Specialist Required: No Allergies erythromycin base [ERYTHROMYCIN BASE] Allergy (Mild, Verified 02/16/22 09:04) CRAMPS/DIARRHEA TOPICAL GRITTY FILM rituximab [From RITUXAN] Allergy (Unknown, Verified 02/16/22 09:04) HIVES atropine [From ] Allergy (Verified 02/16/22 09:04) Diarrhea hyoscyamine [From ] Allergy (Verified 02/16/22 09:04) Diarrhea phenobarbital [From ] Allergy (Verified 02/16/22 09:04) Diarrhea scopolamine [From ] Allergy (Verified 02/16/22 09:04) Diarrhea brompheniramine [From DIMETAPP DM COLD-COUGH (PE)] Adverse Reaction (Unknown, Verified 02/16/22 09:04) HYPER ciprofloxacin [CIPROFLOXACIN] Adverse Reaction (Unknown, Verified 02/16/22 09:04) INTESTINAL CRAMPS, DIARRHEA codeine [CODEINE] Adverse Reaction (Unknown, Verified 02/16/22 09:04) HEADACHES dextromethorphan [From DIMETAPP DM COLD-COUGH (PE)] Adverse Reaction (Unknown, Verified 02/16/22 09:04) HYPER diphenhydramine [From BENADRYL] Adverse Reaction (Unknown, Verified 02/16/22 09:04) HYPER mesalamine [From ASACOL] Adverse Reaction (Unknown, Verified 02/16/22 09:04) HYPER phenylephrine [From DIMETAPP DM COLD-COUGH (PE)] Adverse Reaction (Unknown, Verified 02/16/22 09:04) HYPER Medication List - Last Reconciled 10/24/22 by Vidal Maya MD albuterol sulfate 90 mcg/actuation (Ventolin HFA) 2 puffs inhalation QID PRN aspirin (Adult Low Dose Aspirin) 81 mg PO DAILY atorvastatin 20 mg PO DAILY ethambutol PO loratadine (Claritin) 10 mg PO DAILY lorazepam 0.5 mg PO TID PRN losartan 25 mg PO DAILY magnesium oxide 400 mg PO BID metoprolol succinate ER 50 mg PO DAILY omeprazole 20 mg PO DAILY rifabutin 300 mg PO 3XW sodium chloride 7% mL inhalation spironolactone 12.5 mg PO DAILY tiotropium bromide 2.5 mcg/actuation (Spiriva Respimat) 2 puffs inhalation DAILY torsemide 20 mg PO QAM HPI HPI Comments 2 History of Present Illness Details Magy comes for follow-up after another repeat hospitalization to [facility] with worsening shortness of breath and exertion. He was unclear as to the exact etiology of her shortness of breath. She was seen by Cardiology team there and repeat echocardiogram shows persistent moderate LV systolic dysfunction but improved proBNP. She was also seen by Pulmonary and has been prescribed treatment for LORRAINE related pulmonary infection and COPD exacerbation. She has not noticed any significant weight gain. She is taking torsemide twice a day. She denies any significant worsening leg edema, abdominal distension, weight gain. No obvious orthopnea. Although she says she remains significantly symptomatic with exertional shortness of breath with minimal functionality. Also her energy level has diminished. [facility] Medical History (Updated 10/25/22 @ 13:11 by Vidal Maya MD) (HFpEF) heart failure with preserved ejection fraction Acute Crohn's disease Anxiety Arthritis CAD (coronary artery disease) Cardiac pacemaker in situ Complete heart block Heart attack High cholesterol HTN (hypertension) Macular degeneration of both eyes LORRAINE (mycobacterium avium-intracellulare) Sleep apnea Surgical History H/O wrist surgery History of hysterectomy History of right hip replacement Family History Father No problems noted. Mother No problems noted. Social History Alcohol intake: current Alcohol intake frequency: a few times a month Patient Tobacco Use Status: Former Tobacco user Review of Systems Const Denies chills, Denies fatigue, Denies fever(s), Denies frequent falls, Denies weakness, Denies weight gain and Denies weight loss ENT Denies dizziness Card Denies chest pain, Denies leg edema, Denies lightheadedness, Denies palpitations, Denies dyspnea, Denies dyspnea on exertion, Denies orthopnea and Denies other (loss of consciousness) Resp Denies cough, Denies dyspnea and Denies dyspnea on exertion GI Denies hematochezia and Denies change in stool character Musc Denies abnormal gait, Denies muscle weakness, Denies numbness, Denies radiating pain into limb and Denies tingling Neuro Denies Abnormal speech present, Denies abnormal gait, Denies dizziness, Denies frequent falls, Denies numbness, Denies tingling and Denies weakness Endo Denies fatigue and Denies palpitations Physical Exam Vital Signs: Last Vital Signs Pulse 93 10/24/22 14:42 BP 120/70 10/24/22 14:42 BMI result Body Mass Index 26.4 Const General: cooperative, comfortable, no acute distress, alert and awake Nutritional Appearance: overweight Orientation/consciousness: patient oriented x3 Limitations: ambulation with cane Chest Chest palpation & inspection: other (Pacemaker pocket is benign) Resp Effort & Inspection: normal respiratory effort Auscultation: clear to auscultation bilaterally, no crackles, no rales, no wheezes and diminished lung sounds Cardio Jugular venous distension: no JVD Palpation: normal PMI Rate: regular rate Rhythm: regular rhythm Heart sounds: S1 normal heart sound present, S2 normal heart sound present, no click, no gallops, no murmurs and no rubs GI Auscultation: normal bowel sounds Skin General skin exam: no rashes or lesions noted and ecchymosis Neuro General: patient oriented x3 and no focal motor deficits Speech: No Abnormal speech present Extrem General: No no clubbing, cyanosis or edema Office Procedures Cardiac Device Check Cardiac Device Check Details: Dual-chamber Medtronic pacemaker in place. RV pacing 100% time. Pacing thresholds adequate. No atrial arrhythmias noted. [id number] Cardiac Device Check, pacemaker dual lead Procedure code (CPT) selection complete Assessment & Plan Assessment & Plan (1) Heart failure with reduced ejection fraction: Code(s): I50.20 - Unspecified systolic (congestive) heart failure Plan: Patient developed LV systolic dysfunction since RV pacing. Moderate LV systolic dysfunction. She has had couple of admissions to the hospital with worsening shortness of breath and currently has NYHA class 3 symptoms of shortness of breath and fatigue. Clinically appears to be euvolemic. Continue current diuretic does with torsemide. Will switch sure losartan to Entresto therapy for better heart failure management and reduction hospitalization. Also add Jardiance 10 mg to her regimen. Continue spironolactone 12.5 mg to regimen. Check BMP BNP in 2 weeks time. Management discussed in details. Will also discussed with EPS about potentially upgrading her dual-chamber pacemaker to cardiac resynchronization therapy. This was discussed with her. We also discussed about possibility of putting a CardioMEMS device to reduce hospitalization and better manage her diuretic regimen. She showed understanding to all of these. Continue to optimize pulmonary function. She is scheduled to undergo further pulmonary testing to evaluate if she would benefit from oxygen therapy. (2) Cardiac pacemaker in situ: Comment: Dual-chamber Medtronic pacemaker placed, 01/24/2022 for complete heart block with left bundle-branch pacing Code(s): Z95.0 - Presence of cardiac pacemaker Plan: Cardiac pacemaker in-situ with left bundle-branch pacing. She has developed LV systolic dysfunction since then. Will discuss with EPS to see if this can be switched to cardiac therapy. Continue to monitor remotely. Follow up in the clinic in 6 weeks time, sooner p.r.n.. Thank you for allowing me to partake in the care Medications: New sacubitril-valsartan 24-26 mg (Entresto) 1 tab PO BID 60 tabs 1RF empagliflozin (Jardiance) 10 mg PO DAILY 30 tabs 2RF Changed From torsemide 2 mon/wed/fri 20 mg PO QAM To torsemide 2 mon/wed/fri 20 mg PO BID Coding Level of Care Code Est Pt Level 4 (86467) Diagnoses Heart failure with reduced ejection fraction I50.20 Cardiac pacemaker in situ Z95.0 CPT Codes Cardiac Device Check - Cardiac Device 2: [id number] Cardiac Device Check, pacemaker dual lead ([id number])
== END 2022-10-24 15:23 | disposition home or self-care (01) ==
PROVIDERS: PCP Internal Medicine; Visit Provider Internal Medicine Cardiovascular Disease
DX: I50.20 Unspecified systolic (congestive) heart failure (principal); Z95.0 Presence of cardiac pacemaker; I44.2 Atrioventricular block, complete
CPT/HCPCS: 93280; 99214

== ENCOUNTER → 2022-10-24 14:40 | Outpatient (BNVA) | payer MEDICARE, SELFPAY | PROVIDERS: PCP Internal Medicine; Visit Provider Internal Medicine Cardiovascular Disease | DX: Z45.018 Encounter for adjustment and management of other part of cardiac pacemaker (principal); I50.20 Unspecified systolic (congestive) heart failure | CPT/HCPCS: 93280; 99212 ==

== ENCOUNTER 2022-11-29 15:04 | Outpatient (AMB) | payer MEDICARE, SELFPAY ==
--- NOTE | 2022-11-29 15:34 | MHC.OFFVIS ---
Intake Vital Signs 11/29/22 15:35 Height 5 ft 9 in Weight 178 lb 9.191 oz BMI 26.4 BP 108/72 Blood Pressure Location Lt brachial Position Sitting Pulse 82 Intake Visit Reasons: 4 WEEK FOLLOW UP Intake Note: 4 week follow-up with [employer] check c/o sob feeling a little better Bead Picker Required: No Allergies erythromycin base [ERYTHROMYCIN BASE] Allergy (Mild, Verified 02/16/22 09:04) CRAMPS/DIARRHEA TOPICAL GRITTY FILM rituximab [From RITUXAN] Allergy (Unknown, Verified 02/16/22 09:04) HIVES atropine [From ] Allergy (Verified 02/16/22 09:04) Diarrhea hyoscyamine [From ] Allergy (Verified 02/16/22 09:04) Diarrhea phenobarbital [From ] Allergy (Verified 02/16/22 09:04) Diarrhea scopolamine [From ] Allergy (Verified 02/16/22 09:04) Diarrhea brompheniramine [From DIMETAPP DM COLD-COUGH (PE)] Adverse Reaction (Unknown, Verified 02/16/22 09:04) HYPER ciprofloxacin [CIPROFLOXACIN] Adverse Reaction (Unknown, Verified 02/16/22 09:04) INTESTINAL CRAMPS, DIARRHEA codeine [CODEINE] Adverse Reaction (Unknown, Verified 02/16/22 09:04) HEADACHES dextromethorphan [From DIMETAPP DM COLD-COUGH (PE)] Adverse Reaction (Unknown, Verified 02/16/22 09:04) HYPER diphenhydramine [From BENADRYL] Adverse Reaction (Unknown, Verified 02/16/22 09:04) HYPER mesalamine [From ASACOL] Adverse Reaction (Unknown, Verified 02/16/22 09:04) HYPER phenylephrine [From DIMETAPP DM COLD-COUGH (PE)] Adverse Reaction (Unknown, Verified 02/16/22 09:04) HYPER Medication List - Last Reconciled 11/29/22 by Vidal Maya MD albuterol sulfate 90 mcg/actuation (Ventolin HFA) 2 puffs inhalation QID PRN aspirin (Adult Low Dose Aspirin) 81 mg PO DAILY atorvastatin 20 mg PO DAILY azithromycin 500 mg orally; empagliflozin (Jardiance) 10 mg PO DAILY ethambutol PO fluticasone propionate 220 mcg/actuation (Flovent HFA) 1 puff inhalation BID loratadine (Claritin) 10 mg PO DAILY lorazepam 0.5 mg PO TID PRN losartan 25 mg PO DAILY metoprolol succinate ER 50 mg PO DAILY mucus clearing device As directed omeprazole 20 mg PO DAILY sodium chloride 7% mL inhalation spironolactone 12.5 mg PO DAILY tiotropium bromide 2.5 mcg/actuation (Spiriva Respimat) 2 puffs inhalation DAILY torsemide 20 mg PO BID HPI HPI Comments History of Present Illness Details Magy comes for follow-up. She remains significantly symptomatic with exertional fatigue and shortness of breath. NYHA class 3 symptoms. However denies worsening weight gain, leg edema, orthopnea, PND. Tolerating her medications well. Although says things that she is feeling more tired since initiation of Jardiance therapy. Denies any palpitations, lightheadedness, syncope. Discussed with EPS about upgrading her pacer although dating that left bundle-branch block pacing should not lead to cardiomyopathy process and she would not benefit from DATA ANALYTICS SPECIALIST therapy. She continues to wonder whether she has pulmonary issues. Has not had any recent hospitalization with decompensated congestive heart failure. [facility] Medical History (HFpEF) heart failure with preserved ejection fraction Acute Crohn's disease Anxiety Arthritis CAD (coronary artery disease) Cardiac pacemaker in situ Complete heart block Heart attack High cholesterol HTN (hypertension) Macular degeneration of both eyes LORRAINE (mycobacterium avium-intracellulare) Sleep apnea Surgical History H/O wrist surgery History of hysterectomy History of right hip replacement Family History Father No problems noted. Mother No problems noted. Social History Alcohol intake: current Alcohol intake frequency: a few times a month Patient Tobacco Use Status: Former Tobacco user Review of Systems Const Denies chills, Denies fatigue, Denies fever(s), Denies frequent falls, Denies weakness, Denies weight gain and Denies weight loss ENT Denies dizziness Card Denies chest pain, Denies leg edema, Denies lightheadedness, Denies palpitations, Denies dyspnea, Denies dyspnea on exertion, Denies orthopnea and Denies other (loss of consciousness) Resp Denies cough, Denies dyspnea and Denies dyspnea on exertion GI Denies hematochezia and Denies change in stool character Musc Denies abnormal gait, Denies muscle weakness, Denies numbness, Denies radiating pain into limb and Denies tingling Neuro Denies Abnormal speech present, Denies abnormal gait, Denies dizziness, Denies frequent falls, Denies numbness, Denies tingling and Denies weakness Endo Denies fatigue and Denies palpitations Physical Exam Vital Signs: Last Vital Signs Pulse 82 11/29/22 15:35 BP 108/72 11/29/22 15:35 BMI result Body Mass Index 26.4 Const General: cooperative, comfortable, no acute distress, alert and awake Nutritional Appearance: overweight Orientation/consciousness: patient oriented x3 Limitations: ambulation with cane Chest Chest palpation & inspection: other (Pacemaker pocket is benign) Resp Effort & Inspection: normal respiratory effort Auscultation: clear to auscultation bilaterally, no crackles, no rales, no wheezes and diminished lung sounds Cardio Jugular venous distension: no JVD Palpation: normal PMI Rate: regular rate Rhythm: regular rhythm Heart sounds: S1 normal heart sound present, S2 normal heart sound present, no click, no gallops, no murmurs and no rubs GI Auscultation: normal bowel sounds Skin General skin exam: no rashes or lesions noted and ecchymosis Neuro General: patient oriented x3 and no focal motor deficits Speech: No Abnormal speech present Extrem General: No no clubbing, cyanosis or edema Office Procedures Cardiac Device Check Cardiac Device Check Details: Dual-chamber Medtronic pacemaker in place. Programmed in DDDR at 60 beats per minute. Ventricular pacing 100% of time. No atrial ventricular arrhythmias noted. Atrial sensing was adequate. Ventricular sensing could not be checked. Pacing lead impedance is stable. Atrial pacing thresholds adequate. Ventricular pacing thresholds adequate and reprogrammed to enhance battery life. Battery life is excellent at about 13 years [id number] Cardiac Device Check, pacemaker dual lead Procedure code (CPT) selection complete Assessment & Plan Assessment & Plan (1) Heart failure with reduced ejection fraction: Code(s): I50.20 - Unspecified systolic (congestive) heart failure Plan: Patient with heart failure with reduced ejection fraction secondary to nonischemic cardiomyopathy of unclear etiology but progressive LV systolic dysfunction. Discussed with EPS and did not think this is bundle-branch block related. Clinically today appears to be euvolemic and well compensated but remained significantly symptomatic with both limitations from cardiac as well as pulmonary issue. She has not had recent hospitalization current medications. Continue current diuretic regimen. However I think she will benefit from CardioMEMS device given her advanced symptoms as well as recent hospitalization with heart failure to avoid recurrent hospitalization manage volume status and improve of functionality. This was discussed with her. She is understanding and agreeable. Will schedule this in near future at [facility]. Meanwhile continue neurohormonal modulation with losartan, Jardiance, spironolactone as well as metoprolol therapy. Cannot maximize therapy due to lower blood pressure. Advised to monitor blood pressure at home maintain a log. Daily weight monitoring avoidance of salt loading was discussed. Additional torsemide as need be. She understands and agrees. Also continue to optimize her pulmonary function. (2) Cardiac pacemaker in situ: Comment: Dual-chamber Medtronic pacemaker placed, 01/24/2022 for complete heart block with left bundle-branch pacing Code(s): Z95.0 - Presence of cardiac pacemaker Plan: Cardiac pacemaker in-situ, working well. Reprogrammed for adequate function. Will follow remotely. Follow up in the clinic in 3 months time for both heart failure as well as pacemaker ch (3) CAD (coronary artery disease): Comment: Nonobstructive by cardiac catheterization, November 2020 Code(s): I25.10 - Atherosclerotic heart disease of [place] coronary artery without angina pectoris Plan: CAD which is nonobstructive. Continue aggressive risk factor modification above. Continue low-dose aspirin therapy as well as statin therapy. Blood pressure is well optimized. Follow up in the clinic in 3 months time, sooner p.r.n.. Greater than 40 minutes was spent in managing her complex care. Coding Level of Care Code Est Pt Level 5 (85441) Diagnoses Heart failure with reduced ejection fraction I50.20 Cardiac pacemaker in situ Z95.0 CAD (coronary artery disease) I25.10 CPT Codes Cardiac Device Check - Cardiac Device 2: [id number] Cardiac Device Check, pacemaker dual lead ([id number])
[2022-11-29 15:35] VITALS: BP 108/72; PULSE 82; BMI 26.4
== END 2022-11-29 16:17 | disposition home or self-care (01) ==
PROVIDERS: PCP Internal Medicine; Referring Provider Internal Medicine; Visit Provider Internal Medicine Cardiovascular Disease
DX: I50.20 Unspecified systolic (congestive) heart failure (principal); Z95.0 Presence of cardiac pacemaker; I25.10 Atherosclerotic heart disease of native coronary artery without angina pectoris
CPT/HCPCS: 93280; 99215

== ENCOUNTER → 2022-11-29 15:04 | Outpatient (BNVA) | payer MEDICARE, SELFPAY | PROVIDERS: PCP Internal Medicine; Referring Provider Internal Medicine; Visit Provider Internal Medicine Cardiovascular Disease | DX: I50.20 Unspecified systolic (congestive) heart failure (principal); I25.10 Atherosclerotic heart disease of native coronary artery without angina pectoris; Z79.82 Long term (current) use of aspirin; Z79.899 Other long term (current) drug therapy; Z45.018 Encounter for adjustment and management of other part of cardiac pacemaker | CPT/HCPCS: 93280; 99212 ==